=== PATIENT | female | born 1980 | race Caucasian/White ===

== ENCOUNTER 2021-02-12 00:16 | Emergency (ER) | payer OTHER ==
[~2021-02-12] VITALS: Ht 165.1 cm; Wt 83.9 kg
[2021-02-12 02:00] VITALS: BP_SYST 124
--- NOTE | 2021-02-12 02:00 | NUR ---
Patient ambulatory to bed 6 for evaluation
--- NOTE | 2021-02-12 02:08 | NUR ---
ER at bedside examining patient.
--- NOTE | 2021-02-12 02:16 | NUR ---
TO CERVICAL SPINE W/O CONTRAST VIA WHEELCHAIR.
--- NOTE | 2021-02-12 03:40 | NUR ---
URINE TEST NEGATIVE.
[2021-02-12] MEDS ORDERED: ACET1TAB23 PO (05:03)
[2021-02-12] MEDS ORDERED: DIAZ5TAB4 PO (05:03)
[2021-02-12] MEDS ORDERED: NAPR-686 PO (05:03)
[2021-02-12 05:22] VITALS: BP_SYST 124
--- NOTE | 2021-02-12 05:22 | NUR ---
Patient given written and verbal discharge instructions and verbalizes understanding. ER DR JOE GARZA discussed with patient the results and treatment provided. Patient in stable condition. ID arm band removed. Rx of TYLENOL #3, NAPROXEN,DIAZEPAM given. Patient educated on pain management and to follow up with PMD. Pain Scale . Opportunity for questions provided and answered. Medication side effect fact sheet provided.
== END 2021-02-12 05:22 | disposition home or self-care (01) ==
LOC: SED 00:16
DX: S16.1XXA Strain of muscle, fascia and tendon at neck level, initial encounter (principal); Z79.899 Other long term (current) drug therapy; X50.9XXA Other and unspecified overexertion or strenuous movements or postures, initial encounter; Y93.89 Activity, other specified; Y92.89 Other specified places as the place of occurrence of the external cause; Y99.8 Other external cause status
CPT/HCPCS: 72125-TC; 76376; 81025; 99284